=== PATIENT | male | born 1995 | race Caucasian/White ===

== ENCOUNTER 2016-12-03 12:30 | Emergency (ER) | payer OTHER ==
[~2016-12-03] VITALS: Ht 167.6 cm; Wt 62.3 kg
[2016-12-03 16:34] VITALS: BP 141/86
== END 2016-12-03 16:37 | disposition home or self-care (01) ==
LOC: EME 12:30
DX: S51.812A Laceration without foreign body of left forearm, initial encounter (principal); W26.8XXA Contact with other sharp object(s), not elsewhere classified, initial encounter; Y99.0 Civilian activity done for income or pay; Z23 Encounter for immunization; G40.909 Epilepsy, unspecified, not intractable, without status epilepticus; Z88.0 Allergy status to penicillin; Z72.0 Tobacco use
CPT/HCPCS: 99281; 99283

== ENCOUNTER 2017-04-30 22:44 | Emergency (ER) | payer OTHER ==
[~2017-04-30] VITALS: Ht 165.1 cm; Wt 62.3 kg
[2017-04-30] MEDS ORDERED: PERCOCET 5/31 TABLET PO (23:41)
[2017-04-30] MEDS ORDERED: NAPROSYN500 MG PO (23:46)
[2017-04-30] MEDS ORDERED: COLACE100 MG PO (23:46)
[2017-05-01 00:24] VITALS: BP 133/78
== END 2017-05-01 00:25 | disposition home or self-care (01) ==
LOC: EME 22:44
DX: S32.2XXA Fracture of coccyx, initial encounter for closed fracture (principal); W17.89XA Other fall from one level to another, initial encounter; Y93.23 Activity, snow (alpine) (downhill) skiing, snowboarding, sledding, tobogganing and snow tubing; Z88.0 Allergy status to penicillin
CPT/HCPCS: 72100; 72220; 99281; 99284